=== PATIENT | female | born 1935 | race Caucasian/White ===

== ENCOUNTER 2021-09-25 19:29 | Inpatient (IN) | payer MEDICARE ==
[2021-09-25] MEDS ORDERED: Fentanyl 100 MCG/2 ML VIAL ONE (19:42)
[2021-09-25 20:31] LABS: #Eosinphils 0.2 thou/uL (0.0-0.7); #Lymphocytes 2.2 thou/uL (1.20-3.40); #Monocytes 0.5 thou/uL (0.11-0.59); #Neutrophils 11.8 thou/uL (1.40-6.50); %Basophils 0.3 % (0.0-1.0); %Eosinophils 1.1 % (0.0-10.0); %Lymphocytes 15.2 % (21.0-51.0); %Monocytes 3.1 % (0.0-10.0); %Neutrophils 80.3 % (42.0-75.0); Hemoglobin 13.4 g/dL (12.0-16.0); Mean Corpuscular Hemoglobin 29.4 pg (27.0-31.0); Mean Corpuscular Volume 91.7 fL (78.0-98.0); Mean Platelet Volume 7.6 fL (7.4-10.4); Platelet Count 243 thou/uL (130-400); RBC Distribution Width 12.2 % (11.5-14.5); Red Blood Cell (RBC) Count 4.57 mill/uL (4.20-5.40); White Blood Cell (WBC) Count 14.6 thou/uL (4.8-10.8)
[2021-09-25 20:53] LABS: ALT (SGPT) 19 U/L (8-55); AST (SGOT) 25 U/L (5-34); Albumin 3.8 g/dL (3.4-4.8); Alkaline Phosphatase 95 U/L (40-110); Anion Gap 14 mmol/L (10-20); BUN (Urea Nitrogen) 21 mg/dL (9.8-20.1); Bilirubin, Total 0.4 mg/dL (0.2-1.2); Calc. Creatinine Clearance 0 mL/min (70-130); Carbon Dioxide 26 mmol/L (23-31); Chloride 103 mmol/L (98-107); Estimated GFR 37; Globulin 3.1 g/dL (2.4-3.5); Glucose 163 mg/dL (83-110); Potassium 3.8 mmol/L (3.5-5.1); Protein, Total 6.9 g/dL (5.8-8.1); Sodium 139 mmol/L (136-145)
[2021-09-25] MEDS ORDERED: Morphine 2 MG/ML VIAL ONE (21:46)
[2021-09-25] MEDS ORDERED: Cyclobenzaprine 10 MG TAB PO PRN (21:58)
[2021-09-25] MEDS ORDERED: Morphine 2 MG/ML VIAL SLOW IVP PRN (21:58)
[2021-09-25] MEDS ORDERED: traMADol HCl 50 MG TAB PO SCH (22:00)
[2021-09-25] MEDS ORDERED: Ondansetron PF 4 MG/2 ML Vial IVP PRN (22:02)
[2021-09-25] MEDS ORDERED: Promethazine HCl 25 MG/ML VIAL IM PRN (22:02)
[2021-09-25] MEDS ORDERED: Metoprolol Tartrate 50 MG TAB PO SCH (22:04)
[2021-09-25] MEDS ORDERED: hydrALAZINE 20 MG/ML VIAL SLOW IVP PRN (22:06)
[2021-09-25] MEDS ORDERED: Sodium Chloride 0.9% 1,000 ML IV SCH (22:15)
[2021-09-25] MEDS ORDERED: hydrALAZINE 20 MG/ML VIAL ONE (22:28)
[2021-09-26] MEDS ORDERED: Acetaminophen/Codeine 30-300mg Tablet ONE ×2 (02:31→06:10)
[2021-09-26] MEDS ORDERED: Metoprolol Tartrate 50 MG TAB ONE ×2 (02:31→08:49)
[2021-09-26] MEDS: Acetaminophen/Codeine 30-300mg Tablet PO SCH ×2 (02:40→06:14)
[2021-09-26 05:00] LABS: Bacteria/HPF None Seen HPF (None Seen); Bilirubin Negative (Negative); Blood, Urine Negative (Negative); Clarity Clear (Clear); Glucose, Urine (Dipstick) 100 mg/dL (Negative); Ketone, Urine Negative (Negative); Leukocyte Negative Leu/uL (Negative); Nitrite Negative (Negative); Protein, Urine (Dipstick) Negative (Neg-Trace); RBC/HPF 0-3 HPF (0-3); Specific Gravity, Urine 1.012 (1.002-1.036); Squamous Epithelial 0-3 HPF (0-3); Urobilinogen Normal mg/dL (Less than 2); pH, Urine 7.5 (5.0-9.0)
[2021-09-26 05:02] LABS: Urine Culture Reflex Yes Yes
[2021-09-26 05:56] LABS: #Lymphocytes 2.1 thou/uL (1.20-3.40); #Monocytes 0.5 thou/uL (0.11-0.59); #Neutrophils 13.1 thou/uL (1.40-6.50); %Basophils 0.3 % (0.0-1.0); %Eosinophils 0.2 % (0.0-10.0); %Monocytes 3.2 % (0.0-10.0); %Neutrophils 83.3 % (42.0-75.0); Hemoglobin 14.3 g/dL (12.0-16.0); Mean Corpuscular HGB CONC 34.2 g/dL (32.0-36.0); Mean Corpuscular Hemoglobin 30.9 pg (27.0-31.0); Mean Corpuscular Volume 90.4 fL (78.0-98.0); Mean Platelet Volume 7.6 fL (7.4-10.4); Platelet Count 260 thou/uL (130-400); RBC Distribution Width 12.2 % (11.5-14.5); Red Blood Cell (RBC) Count 4.62 mill/uL (4.20-5.40); White Blood Cell (WBC) Count 15.7 thou/uL (4.8-10.8)
[2021-09-26 06:20] LABS: Anion Gap 17 mmol/L (10-20); BUN (Urea Nitrogen) 16 mg/dL (9.8-20.1); CK (CPK) 67 U/L (29-168); Calc. Creatinine Clearance 0 mL/min (70-130); Calcium 9.4 mg/dL (7.8-10.44); Carbon Dioxide 21 mmol/L (23-31); Chloride 100 mmol/L (98-107); Estimated GFR 46; Glucose 138 mg/dL (83-110); Magnesium 1.9 mg/dL (1.6-2.6); Phosphorus 3.2 mg/dL (2.3-4.7); Potassium 3.9 mmol/L (3.5-5.1); Sodium 134 mmol/L (136-145)
[2021-09-26] MEDS ORDERED: hydrALAZINE 20 MG/ML VIAL ONE (06:39)
[2021-09-26] MEDS ORDERED: Morphine 2 MG/ML VIAL SLOW IVP PRN (07:23)
[2021-09-26] MEDS ORDERED: PHOS-NAK 1 PKT PACK PO SCH (07:30)
[2021-09-26] MEDS ORDERED: Metoprolol Tartrate 50 MG TAB PO SCH ×2 (09:00)
[2021-09-26] MEDS ORDERED: Famotidine 20 MG TAB PO SCH (09:00)
[2021-09-26] MEDS ORDERED: Senokot S 8.6-50 MG TAB PO SCH (09:00)
[2021-09-26] MEDS ORDERED: Famotidine 20 MG TAB ONE (09:17)
[2021-09-26] MEDS ORDERED: Cyclobenzaprine 10 MG TAB ONE (09:17)
[2021-09-26] MEDS: Famotidine 20 MG TAB PO SCH (09:39)
[2021-09-26] MEDS: Gabapentin 100 MG CAP PO SCH ×3 (09:40→22:30)
[2021-09-26] MEDS: Polyethylene Glycol 3350 17 GM Packet PO SCH (11:27)
[2021-09-26] MEDS ORDERED: Acetaminophen/Codeine 30-300mg Tablet PO PRN (12:00)
[2021-09-26] MEDS: Acetaminophen 325 MG TAB PO SCH ×2 (13:10→18:15)
[2021-09-26 14:40] VITALS: BMI 25.8
[2021-09-26] MEDS ORDERED: Mometasone Furoate 120 PUFF 220 MCG INH SCH (18:30)
[2021-09-26] MEDS ORDERED: Mometasone Furoate 30 PUFF 220 MCG INH SCH (19:15)
[2021-09-26] MEDS: Senokot S 8.6-50 MG TAB PO SCH (22:30)
[2021-09-26] MEDS ORDERED: Sodium Chloride 0.9% 1,000 ML IV SCH (23:55)
[2021-09-27] MEDS: Acetaminophen 325 MG TAB PO SCH ×4 (00:26→19:55)
[2021-09-27 05:58] LABS: #Eosinphils 0.1 thou/uL (0.0-0.7); #Lymphocytes 2.7 thou/uL (1.20-3.40); #Monocytes 1.3 thou/uL (0.11-0.59); #Neutrophils 11.3 thou/uL (1.40-6.50); %Basophils 0.3 % (0.0-1.0); %Eosinophils 0.6 % (0.0-10.0); %Lymphocytes 17.4 % (21.0-51.0); %Monocytes 8.3 % (0.0-10.0); %Neutrophils 73.4 % (42.0-75.0); Hemoglobin 14.3 g/dL (12.0-16.0); Mean Corpuscular HGB CONC 33.4 g/dL (32.0-36.0); Mean Corpuscular Hemoglobin 30.3 pg (27.0-31.0); Mean Corpuscular Volume 90.8 fL (78.0-98.0); Platelet Count 226 thou/uL (130-400); RBC Distribution Width 12.5 % (11.5-14.5); White Blood Cell (WBC) Count 15.4 thou/uL (4.8-10.8)
[2021-09-27] MEDS: Levothyroxine Sodium 88 MCG TAB PO SCH (06:12)
[2021-09-27 06:16] LABS: Anion Gap 17 mmol/L (10-20); BUN (Urea Nitrogen) 14 mg/dL (9.8-20.1); Calc. Creatinine Clearance 41 mL/min (70-130); Calcium 9.2 mg/dL (7.8-10.44); Carbon Dioxide 21 mmol/L (23-31); Chloride 103 mmol/L (98-107); Estimated GFR 47; Glucose 112 mg/dL (83-110); Magnesium 1.9 mg/dL (1.6-2.6); Phosphorus 2.7 mg/dL (2.3-4.7); Potassium 3.7 mmol/L (3.5-5.1); Sodium 137 mmol/L (136-145)
[2021-09-27] MEDS ORDERED: Potassium Phosphate 15 MMOL in Sodium Chloride 0.9% 250 ML 250 ML IVPB SCH (08:00)
[2021-09-27] MEDS: Gabapentin 100 MG CAP PO SCH ×3 (08:59→19:53)
[2021-09-27] MEDS: Famotidine 20 MG TAB PO SCH (08:59)
[2021-09-27] MEDS: Polyethylene Glycol 3350 17 GM Packet PO SCH (09:00)
[2021-09-27] MEDS: Senokot S 8.6-50 MG TAB PO SCH ×2 (09:00→19:53)
[2021-09-27] MEDS: Montelukast Sodium 10 mg Tablet PO SCH (09:01)
[2021-09-27] MEDS ORDERED: fentaNYL Citrate/PF 100 MCG/2 ML SYRINGE ONE (10:19)
[2021-09-27] MEDS ORDERED: Ketamine 50 MG/ML (10ML VIAL) ONE (10:48)
[2021-09-27] MEDS ORDERED: CEFAZOLIN 2 GM VIAL ONE (10:52)
[2021-09-27] MEDS ORDERED: Sodium Chloride 0.9% 100 ML ONE (10:52)
[2021-09-27] MEDS ORDERED: Lidocaine 1% PF 5 ML VIAL ONE (11:15)
[2021-09-27] MEDS ORDERED: Ondansetron PF 4 MG/2 ML Vial ONE (11:15)
[2021-09-27] MEDS ORDERED: Neostigmine Methylsulfate 3 MG/3 ML SYRINGE ONE (11:15)
[2021-09-27] MEDS ORDERED: PROPOFOL 200 MG/20 ML VIAL ONE (11:15)
[2021-09-27] MEDS ORDERED: Rocuronium Bromide 10 MG/ML (10ML VIAL) ONE (11:15)
[2021-09-27] MEDS ORDERED: Glycopyrrolate 0.2 MG/ML 5 ML SYRINGE ONE (11:15)
[2021-09-27] MEDS ORDERED: Dexamethasone 20 MG/5 ML VIAL ONE (11:15)
[2021-09-27] MEDS: CEFAZOLIN 2 GM in Sodium Chloride 0.9% 100 ML IVPB SCH (17:39)
[2021-09-27] MEDS: Mometasone Furoate 30 PUFF 220 MCG INH SCH (19:24)
[2021-09-28] MEDS: Acetaminophen 325 MG TAB PO SCH ×4 (00:40→17:09)
[2021-09-28] MEDS: CEFAZOLIN 2 GM in Sodium Chloride 0.9% 100 ML IVPB SCH (03:03)
[2021-09-28] MEDS: Levothyroxine Sodium 88 MCG TAB PO SCH (06:21)
[2021-09-28 06:44] LABS: #Lymphocytes 1.4 thou/uL (1.20-3.40); #Monocytes 0.8 thou/uL (0.11-0.59); #Neutrophils 10.8 thou/uL (1.40-6.50); %Basophils 0.2 % (0.0-1.0); %Eosinophils 0.2 % (0.0-10.0); %Lymphocytes 10.4 % (21.0-51.0); %Monocytes 6.5 % (0.0-10.0); %Neutrophils 82.8 % (42.0-75.0); Hemoglobin 12.1 g/dL (12.0-16.0); Mean Corpuscular HGB CONC 33.2 g/dL (32.0-36.0); Mean Corpuscular Hemoglobin 30.9 pg (27.0-31.0); Mean Corpuscular Volume 92.9 fL (78.0-98.0); Mean Platelet Volume 8.2 fL (7.4-10.4); Platelet Count 184 thou/uL (130-400); RBC Distribution Width 12.3 % (11.5-14.5); Red Blood Cell (RBC) Count 3.94 mill/uL (4.20-5.40)
[2021-09-28 07:13] LABS: Anion Gap 15 mmol/L (10-20); BUN (Urea Nitrogen) 23 mg/dL (9.8-20.1); Calc. Creatinine Clearance 37 mL/min (70-130); Calcium 8.6 mg/dL (7.8-10.44); Carbon Dioxide 22 mmol/L (23-31); Chloride 104 mmol/L (98-107); Estimated GFR 42; Glucose 141 mg/dL (83-110); Magnesium 1.9 mg/dL (1.6-2.6); Phosphorus 3.7 mg/dL (2.3-4.7); Potassium 3.8 mmol/L (3.5-5.1); Sodium 137 mmol/L (136-145)
[2021-09-28] MEDS ORDERED: PHOS-NAK 1 PKT PACK PO SCH (09:00)
[2021-09-28] MEDS ORDERED: Cetirizine HCl 10 MG TAB PO SCH (09:00)
[2021-09-28] MEDS: Loratadine 10 MG TAB PO SCH (10:36)
[2021-09-28] MEDS: Rivaroxaban 15 MG TAB PO SCH (10:36)
[2021-09-28] MEDS: Gabapentin 100 MG CAP PO SCH ×3 (10:36→20:25)
[2021-09-28] MEDS: Polyethylene Glycol 3350 17 GM Packet PO SCH (10:36)
[2021-09-28] MEDS: Montelukast Sodium 10 mg Tablet PO SCH (10:36)
[2021-09-28] MEDS: Senokot S 8.6-50 MG TAB PO SCH ×2 (10:36→20:25)
[2021-09-28] MEDS: Atorvastatin Calcium 10 MG TAB PO SCH (10:37)
[2021-09-28] MEDS: Famotidine 20 MG TAB PO SCH (10:37)
[2021-09-28] MEDS: Cephalexin 250 MG CAP PO SCH ×2 (12:53→20:25)
[2021-09-28] MEDS ORDERED: Cephalexin 250 MG CAP PO SCH (14:00)
[2021-09-28] MEDS: Acetaminophen/Codeine 30-300mg Tablet PO PRN (22:44)
[2021-09-29] MEDS: Acetaminophen 325 MG TAB PO SCH ×3 (02:54→12:25)
[2021-09-29] MEDS: Levothyroxine Sodium 88 MCG TAB PO SCH (04:38)
[2021-09-29] MEDS: Cephalexin 250 MG CAP PO SCH ×2 (04:38→12:26)
[2021-09-29] MEDS: Acetaminophen/Codeine 30-300mg Tablet PO PRN (04:39)
[2021-09-29 05:44] LABS: #Monocytes 1.1 thou/uL (0.11-0.59); #Neutrophils 11.1 thou/uL (1.40-6.50); %Basophils 0.1 % (0.0-1.0); %Eosinophils 0.2 % (0.0-10.0); %Lymphocytes 13.7 % (21.0-51.0); %Monocytes 7.6 % (0.0-10.0); %Neutrophils 78.4 % (42.0-75.0); Hemoglobin 10.8 g/dL (12.0-16.0); Mean Corpuscular HGB CONC 32.7 g/dL (32.0-36.0); Mean Corpuscular Hemoglobin 29.7 pg (27.0-31.0); Mean Corpuscular Volume 90.8 fL (78.0-98.0); Mean Platelet Volume 8.1 fL (7.4-10.4); Platelet Count 207 thou/uL (130-400); RBC Distribution Width 12.5 % (11.5-14.5); Red Blood Cell (RBC) Count 3.63 mill/uL (4.20-5.40); White Blood Cell (WBC) Count 14.2 thou/uL (4.8-10.8)
[2021-09-29 06:09] LABS: Anion Gap 13 mmol/L (10-20); BUN (Urea Nitrogen) 33 mg/dL (9.8-20.1); Calc. Creatinine Clearance 32 mL/min (70-130); Calcium 8.5 mg/dL (7.8-10.44); Carbon Dioxide 25 mmol/L (23-31); Chloride 104 mmol/L (98-107); Estimated GFR 35; Glucose 128 mg/dL (83-110); Magnesium 2.1 mg/dL (1.6-2.6); Potassium 3.5 mmol/L (3.5-5.1); Sodium 138 mmol/L (136-145)
[2021-09-29] MEDS: Mometasone Furoate 30 PUFF 220 MCG INH SCH (07:02)
[2021-09-29] MEDS ORDERED: Sodium Chloride 0.9% 500 ML IV SCH (07:30)
[2021-09-29] MEDS ORDERED: Potassium Chloride 20 MEQ TAB PO SCH (07:30)
[2021-09-29] MEDS: Atorvastatin Calcium 10 MG TAB PO SCH (08:37)
[2021-09-29] MEDS: Famotidine 20 MG TAB PO SCH (08:38)
[2021-09-29] MEDS: Gabapentin 100 MG CAP PO SCH (08:38)
[2021-09-29] MEDS: Loratadine 10 MG TAB PO SCH (08:39)
[2021-09-29] MEDS: Montelukast Sodium 10 mg Tablet PO SCH (08:39)
[2021-09-29] MEDS: Rivaroxaban 15 MG TAB PO SCH (08:40)
[2021-09-29] MEDS: Senokot S 8.6-50 MG TAB PO SCH (08:40)
[2021-09-29] MEDS: Polyethylene Glycol 3350 17 GM Packet PO SCH (08:40)
[2021-09-29 13:30] VITALS: BP 124/76; TEMP 98.5
== END 2021-09-29 13:19 | DRG 522 ==
LOC: ERS 19:29 → SURG A 21:54 → ERHOLD 22:01 → SURG A 09-26 10:49
PROVIDERS: ADMIT Specialist; ATTEND Surgery
PROC: 0SRS0JA Replacement of Left Hip Joint, Femoral Surface with Synthetic Substitute, Uncemented, Open Approach (ICD-10-PCS; principal; 2021-09-27)
DX: S72.002A Fracture of unspecified part of neck of left femur, initial encounter for closed fracture (principal); I25.10 Atherosclerotic heart disease of native coronary artery without angina pectoris; I48.91 Unspecified atrial fibrillation; N18.30 Chronic kidney disease, stage 3 unspecified; G30.9 Alzheimer's disease, unspecified; F02.80 Dementia in other diseases classified elsewhere, unspecified severity, without behavioral disturbance, psychotic disturbance, mood disturbance, and anxiety; E78.00 Pure hypercholesterolemia, unspecified; I12.9 Hypertensive chronic kidney disease with stage 1 through stage 4 chronic kidney disease, or unspecified chronic kidney disease; E03.9 Hypothyroidism, unspecified; W19.XXXA Unspecified fall, initial encounter; Z20.822 Contact with and (suspected) exposure to COVID-19; Z95.0 Presence of cardiac pacemaker; Z88.0 Allergy status to penicillin; Y92.129 Unspecified place in nursing home as the place of occurrence of the external cause
CPT/HCPCS: 36415; 70450; 71045; 72170; 80048; 80053; 81001; 82550; 83735; 84100; 84484; 85025; 86850; 86900; 86901; 87077; 87086; 93005; 94664; C1713; C1776; G0390; J0360; J0690; J1100; J2270; J2405; J2704; J3010; J3490; J7030; J7050; U0003; U0005